=== PATIENT | male | born 1950 | race Caucasian/White ===

== ENCOUNTER → 2024-02-12 10:48 | Outpatient (REF) | payer MEDICARE, OTHER, SELFPAY ==
[2024-02-12 11:30] LABS: Hematocrit 47.3 % (39.0-52.0); Hemoglobin 16.3 g/dL (13.0-18.0); Mean Corp Hgb Conc. 34.5 g/dL (33.0-37.0); Mean Corpuscular Hgb 33.7 pg (27.0-31.0); Mean Corpuscular Volume 97.9 fL (80.0-94.0); Mean Platelet Volume 8.9 fL (7.4-10.4); Platelet Count 188 10^3/uL (130-400); Red Blood Cell Count 4.83 10^6/uL (4.70-6.10); Red Cell Dist. Width 11.8 % (11.5-14.5); White Blood Cell Count 5.2 10^3/uL (4.8-10.8)
[2024-02-12 12:38] LABS: PSA, Total - Diagnostic 2.33 ng/ml (0.0-4.0)
== END ==
LOC: REG 10:48
PROVIDERS: ATTENDING PHYSICIAN Specialist
DX: E29.1 Testicular hypofunction (principal); R97.20 Elevated prostate specific antigen [PSA]
CPT/HCPCS: 36415; 84153; 84403; 85027